=== PATIENT | male | born 1960 | race Caucasian/White ===

== ENCOUNTER 2022-02-08 09:32 | Outpatient (CLI) | payer OTHER, SELFPAY ==
--- NOTE | 2022-02-08 09:52 | XR_ITS ---
WS: [id number] TECHNIQUE: 2 views of the left hand CLINICAL INFORMATION: ARTHRITIS COMPARISON: None. FINDINGS: Mild hypertrophic spurring at the metacarpal heads. Mild narrowing of the 1st MCP joint. Metacarpals are otherwise normal in appearance. Normal PIP and DIP joints. No evidence of acute fracture or dislo cation. Radiocarpal joint: Mild narrowing Carpal bones: Normal. Tiny radiopaque fragments or calcifications palmar soft tissues at the 2nd metacarpal head and 2nd vo lar distal phalanx XR/XR hand LT 2V [id number] IMPRESSION: 1. Mild hypertrophic spurring involving the metacarpal heads. 2. Mild degenerative narrowing involving the radiocarpal joint. Normal carpal bones. 3. Mild degenerative narrowing involving the 1st MCP. 4. Tiny punctate radiopaque soft tissue fragments or calcifications described above.
--- NOTE | 2022-02-08 09:52 | XR_ITS ---
WS: [email or web address] CERVICAL SPINE TECHNIQUE: 3 views of the cervical spine CLINICAL INFORMATION: PAIN COMPARISON: None. FINDINGS: Straightening of the normal cervical lordosis. Normal C1-C2 articulation. Mild spondylitic changes. M ild to moderate facet arthropathy C3-C5. Mild C1-C2 articulation. Disc space heights and vertebral terri dy heights are well preserved. Normal prevertebral soft tissues. XR/XR cervical spine 3V* [id number] IMPRESSION: Mild spondylitic changes described above.
--- NOTE | 2022-02-08 09:52 | XR_ITS ---
WS: [email or web address] LUMBAR SPINE TECHNIQUE: 3 views of the lumbar spine CLINICAL INFORMATION: PAIN COMPARISON: None. FINDINGS: Five [id number] lumbar vertebral bodies. Mild lumbar curve. Moderate to advanced spondylitic rakan nges lumbar spine. Mild chronic anterior wedging at T12 and L1. Mild chronic compression superior end plate at L1. Disc space narrowing throughout the lumbar spine with vacuum disc phenomenon at L2-L3 an d L4-L5. Disc space narrowing worse at L1-L2 and L5-S1 with almost complete loss of disc space height . Slight retrolisthesis L2 on L3 and L3 on L4. Moderate facet arthropathy L4-L5 and L5-S1. Aortic graciela cification. XR/XR lumbar spine 2-3V* [id number] IMPRESSION: Moderate to advanced spondylitic changes lumbar spine described above.
--- NOTE | 2022-02-08 09:52 | XR_ITS ---
WS: [email or web address] HIP WITH PELVIS LEFT TECHNIQUE: 3 views of the left hip with pelvis CLINICAL INFORMATION: PAIN COMPARISON: None. FINDINGS: Mild degenerative narrowing LEFT hip. No acute fractures. Normal LEFT pubic rami. Mild degenerative a rthritis partially visualized sacroiliac joints. XR/XR hip LT 2-3V wo/w pel* [id number] IMPRESSION: Mild degenerative narrowing LEFT hip. Tonnis classification: grade 1: sclerosis of femoral head and acetabulum or sli ght joint space narrowing or slight lippig at joint margins
== END 2022-02-08 09:33 | disposition home or self-care (01) ==
LOC: RAD 09:42
PROVIDERS: PCP Family Medicine; Visit Provider Dermatology
DX: Z02.71 Encounter for disability determination (principal); M54.2 Cervicalgia; M54.50 Low back pain, unspecified; M25.552 Pain in left hip; M19.042 Primary osteoarthritis, left hand
CPT/HCPCS: 72040; 72100; 73120; 73502